=== PATIENT | male | born 1985 | race African-American/Black ===

== ENCOUNTER 2021-03-17 12:07 | Inpatient (IN) | payer MEDICAID ==
[~2021-03-17] VITALS: Ht 177.8 cm; Wt 99.3 kg
--- NOTE | 2021-03-17 12:55 | NUR ---
35 years old male alert, oriented x4 walking to er c/o abdominal pain, nausea vomiting x2 days, black stool no acute distress at present.
[2021-03-17] MEDS ORDERED: ONDANSETRON HCL/PF 4 MG/2 ML VIAL ONE ×2 (13:17→15:28)
[2021-03-17] MEDS ORDERED: FAMOTIDINE/PF INJ 20 MG/2 ML VIAL IV ONE ×2 (13:18→13:30)
[2021-03-17 13:23] LABS: BASOPHILS % (AUTO) 0.1 % (0.0-2.0); EOSINOPHILS % (AUTO) 1.1 % (0.0-6.0); HEMATOCRIT 41 % (39-51); HEMOGLOBIN 13.8 g/dL (13.5-17.5); LYMPHOCYTES # (AUTO) 0.6 /CMM (0.8-4.8); LYMPHOCYTES % (AUTO) 8.1 % (20.0-44.0); MEAN CORPUSCULAR HGB CONC 34 g/dl (31.0-36.0); MEAN CORPUSCULAR VOLUME 87 fL (80-96); MONOCYTES # (AUTO) 0.5 /CMM (0.1-1.30); MONOCYTES % (AUTO) 6.2 % (2.0-12.0); NEUTROPHILS # (AUTO) 6.7 /CMM (1.8-8.9); NEUTROPHILS % (AUTO) 84.5 % (43.0-81.0); PLATELET COUNT (AUTO) 209 /CMM (150-450); RED BLOOD CELL COUNT(AUTO) 4.73 MIL/uL (4.5-6.0)
[2021-03-17 13:28] LABS: CALCIUM, SERUM 9.1 mg/dL (8.5-10.1); CREATININE 1.3 mg/dL (0.6-1.3); POTASSIUM 3.4 mmol/L (3.5-5.1)
[2021-03-17] MEDS ORDERED: ONDANSETRON HCL/PF 4 MG/2 ML VIAL IVP ONE (13:30)
[2021-03-17] MEDS ORDERED: IV NS 0.9% 1,000 ML BAG IV ONE ×2 (13:30→15:00)
--- NOTE | 2021-03-17 13:30 | NUR ---
us tech at bedside
[2021-03-17 13:35] LABS: ALBUMIN 4.3 g/dL (3.4-5.0); BILIRUBIN,DIRECT 0.2 mg/dL (0.0-0.2); BILIRUBIN,TOTAL 0.5 mg/dL (0.2-1.0); TOTAL PROTEIN, SERUM 8.6 g/dL (6.4-8.2)
[2021-03-17] MEDS ORDERED: ONDANSETRON HCL/PF - ER 4 MG/2 ML VIAL IV ONE (15:00)
[2021-03-17] MEDS ORDERED: MORPHINE SULFATE INJ 2 MG/ML DISP.SYRIN IV ONE (15:00)
[2021-03-17] MEDS ORDERED: MORPHINE SULFATE INJ 4 MG/ML DISP.SYRIN ONE (15:28)
--- NOTE | 2021-03-17 19:00 | NUR ---
patient resting no acute changes [facility] pt updates on plan of care.
--- NOTE | 2021-03-17 19:05 | NUR ---
rec'd report from DAMIEN Pena for virgil
--- NOTE | 2021-03-17 19:15 | NUR ---
report endorsed to nurse Dwyer all questions answered.
--- NOTE | 2021-03-17 19:28 | NUR ---
PAGED [facility].
--- NOTE | 2021-03-17 19:48 | NUR ---
CALLED NURSING SUP FOR MS BED
[2021-03-17] MEDS ORDERED: MORPHINE SULFATE INJ 2 MG/ML DISP.SYRIN IV PRN (20:00)
[2021-03-17] MEDS ORDERED: MAG HYDROX/AL HYDROX/SIMETH 30 ML UDC PO PRN (20:00)
[2021-03-17] MEDS ORDERED: ACETAMINOPHEN 325 MG TABLET PO PRN (20:00)
[2021-03-17] MEDS ORDERED: IV NS 0.9% 1,000 ML IV SCH (20:00)
[2021-03-17] MEDS ORDERED: PHARMACY ADD 1 AMP MVI TO IVF DAILY ONE BAG XX PRN (20:00)
[2021-03-17] MEDS ORDERED: Z GUARD REMEDY 2 OZ OINT TP PRN (20:00)
[2021-03-17] MEDS ORDERED: LORAZEPAM INJ 2 MG/ML VIAL IV PRN (20:00)
[2021-03-17] MEDS ORDERED: ZOLPIDEM TARTRATE 5 MG TABLET PO PRN (20:00)
[2021-03-17] MEDS ORDERED: MAGNESIUM HYDROXIDE 30 ML UDC PO PRN (20:00)
--- NOTE | 2021-03-17 20:29 | NUR ---
gave report to DAMIEN Ayon for virgil
[2021-03-17] MEDS ORDERED: POTASSIUM CL. PREMIX PERIPHER. 50 ML IV SCH (20:30)
[2021-03-17 21:00] VITALS: BP 155/96
[2021-03-17] MEDS ORDERED: Folic acid 1 MG in IV D5W 50 ML IV SCH (21:00)
[2021-03-17] MEDS ORDERED: MVI ADULT 10ML VIAL = 1AMP 10 ML in IV NS 0.9% 1,000 ML IV ONE (22:00)
--- NOTE | 2021-03-17 22:00 | NUR ---
MS RN NOTES Patient arrived to [facility] at 2100 via gurney and EMT escort in stable condition. Patient is A&Ox4. VS: Temp 98.3, B/P 155/96, HR 67, O2 sat 100%, RR 19. Pain 9/10, PRN Morphine given as ordered. Pupils equal and reactive to light. No vision or hearing issues. Heart rate and rhythm regular. Lung sounds clear. Bowel sounds throughout hypoactive, abdominal distension noted, tenderness upon palpation to L and R upper quadrants. No tenderness to lower quadrants. No bladder distension. Moves extremities equally. No edema. Has history of alcohol abuse, asthma, and OA. Patient states the n/v he had been feeling in ER has subsided and now only the abdominal pain is an issue. Will continue to monitor.
[2021-03-17] MEDS ORDERED: Thiamine 100 MG/ML VIAL ONE (23:32)
--- NOTE | 2021-03-17 23:38 | NUR ---
RN NOTES IV folic acid not available MD aware, pharmacy will mix tomorrow. Per MD do not give PO d/t pancreatitis.
[2021-03-17] MEDS: Thiamine 100 MG in IV D5W 50 ML IV SCH (23:59)
[2021-03-18] MEDS: POTASSIUM CL. PREMIX PERIPHER. 50 ML IV SCH ×2 (00:37→01:51)
[2021-03-18] MEDS: MORPHINE SULFATE INJ 2 MG/ML DISP.SYRIN IV PRN ×5 (01:18→21:24)
[2021-03-18 06:48] LABS: BASOPHILS % (AUTO) 0.1 % (0.0-2.0); EOSINOPHILS % (AUTO) 0.1 % (0.0-6.0); HEMATOCRIT 40 % (39-51); HEMOGLOBIN 13.3 g/dL (13.5-17.5); LYMPHOCYTES # (AUTO) 0.4 /CMM (0.8-4.8); LYMPHOCYTES % (AUTO) 4.5 % (20.0-44.0); MEAN CORPUSCULAR HGB CONC 33 g/dl (31.0-36.0); MEAN CORPUSCULAR VOLUME 88 fL (80-96); MONOCYTES # (AUTO) 0.6 /CMM (0.1-1.30); MONOCYTES % (AUTO) 7.1 % (2.0-12.0); NEUTROPHILS # (AUTO) 7.7 /CMM (1.8-8.9); NEUTROPHILS % (AUTO) 88.2 % (43.0-81.0); PLATELET COUNT (AUTO) 174 /CMM (150-450); RED BLOOD CELL COUNT(AUTO) 4.57 MIL/uL (4.5-6.0); WHITE BLOOD COUNT (AUTO) 8.7 K/uL (4.3-11.0)
--- NOTE | 2021-03-18 06:55 | NUR ---
MS RN CLOSING NOTES Patient is A&Ox4. VSS. Continues to have 8-9/10 pain to upper abdomen relieved to about a 5/10 after PRN Morphine administration. Denies n/v at this time but reports no appetite and feeling bloated. abd still distended. Tolerated IV K+ well. Tolerated IV fluids well. Mo withdrawal symptoms at this time. will endorse.
[2021-03-18] MEDS: IV NS 0.9% 1,000 ML IV PRN ×3 (07:01→22:43)
--- NOTE | 2021-03-18 07:26 | NUR ---
MS/RN OPENING NOTES RECEIVED PATIENT ON BED AWAKE ALERT AND ORIENTED X4. PATIENT IS ON ROOM AIR SATURATING WILL. PATIENT IN NO APPARENT RESPIRATORY DISTRESS NOTED. COMPLAINED OF PAIN JUST RECENTLY GIVEN PAIN MEDICATIONS BY NIGHT RN. WILL CONTINUE TO MONITOR.
[2021-03-18 07:31] LABS: CALCIUM, SERUM 7.9 mg/dL (8.5-10.1); MAGNESIUM 1.9 mg/dL (1.8-2.4); PHOSPHORUS 2.7 mg/dL (2.5-4.9); POTASSIUM 3.6 mmol/L (3.5-5.1)
[2021-03-18 08:00] VITALS: BP 154/94
--- NOTE | 2021-03-18 11:36 | NUR ---
MS/RN NOTES PRAKASH PIZARRO JOCKEY VALET ORDER TO INCREASE THE RATE OF NS1L AT 150 ML/HR. NOTED AND CARRIED OUT.
[2021-03-18 16:00] VITALS: BP 155/94
--- NOTE | 2021-03-18 19:20 | NUR ---
MS/RN CLOSING NOTES PATIENT IS ON BED AWAKE ALERT AND ORIENTED X4. PATIENT IS ON ROOM AIR SATURATING WILL. PATIENT IN NO APPARENT RESPIRATORY DISTRESS NOTED. NO COMPLAINED OF PAIN NOTED AT THIS TIME. SEEN AND EXAMINED BY MD WITH ORDERS MADE AND CARRIED OUT . ALL DUE MEDICATIONS WAS GIVEN. IV ACCESS AT RIGHT HAND # 20G WITH IV FLUID OF NS/1L AT 150ML/HR ON AND INFUSING WELL. SAFETY PRECAUTIONS WAS IN PLACED. BED IN LOWEST POSITION AND LOCKED. SIDERAILS LOCKED X2. CALL LIGHT WITHIN REACH. WILL ENDORSED TO COAL TRAMMER FOR HASEEB.
[2021-03-18 20:00] VITALS: BP 153/95
--- NOTE | 2021-03-18 20:00 | NUR ---
MS RN OPENING NOTES Patient is awake, A&Ox4. States he feels abdominal pain that does not go away but lessens with PRN medication administration, and feels his muscles twitch from time to time. Denies any other withdrawal symptoms. Will follow pain management regimen and continue with IVF and vitamins as ordered.
[2021-03-18] MEDS: Folic acid 1 MG in IV D5W 50 ML IV SCH (20:51)
[2021-03-18] MEDS: Thiamine 100 MG in IV D5W 50 ML IV SCH (21:34)
[2021-03-18 23:17] VITALS: BP 153/95
[2021-03-19] MEDS: MORPHINE SULFATE INJ 2 MG/ML DISP.SYRIN IV PRN ×3 (03:15→19:54)
[2021-03-19] MEDS: IV NS 0.9% 1,000 ML IV PRN ×2 (05:34→13:49)
[2021-03-19 06:26] LABS: BASOPHILS % (AUTO) 0.1 % (0.0-2.0); EOSINOPHILS % (AUTO) 0.4 % (0.0-6.0); HEMATOCRIT 36 % (39-51); HEMOGLOBIN 12.1 g/dL (13.5-17.5); LYMPHOCYTES # (AUTO) 0.6 /CMM (0.8-4.8); MEAN CORPUSCULAR HGB CONC 33 g/dl (31.0-36.0); MEAN CORPUSCULAR VOLUME 88 fL (80-96); MONOCYTES # (AUTO) 0.8 /CMM (0.1-1.30); MONOCYTES % (AUTO) 8.2 % (2.0-12.0); NEUTROPHILS % (AUTO) 85.3 % (43.0-81.0); PLATELET COUNT (AUTO) 152 /CMM (150-450); RED BLOOD CELL COUNT(AUTO) 4.15 MIL/uL (4.5-6.0); WHITE BLOOD COUNT (AUTO) 9.3 K/uL (4.3-11.0)
--- NOTE | 2021-03-19 06:36 | NUR ---
MS RN CLOSING NOTES Patient is A&Ox4. VSS. Reports severe pain x2, relieved with PRN Morphine, no other complaints at this time. Able to make needs known. IV patent and infusing NS at 150cc/hr.
--- NOTE | 2021-03-19 07:20 | NUR ---
MS/RN OPENING NOTES RECEIVED PATIENT ON BED AWAKE ALERT AND ORIENTED X4. PATIENT IS ON ROOM AIR SATURATING WILL. PATIENT IN NO APPARENT RESPIRATORY DISTRESS NOTED. NO COMPLAINED OF PAIN AT THIS TIME. WILL CONTINUE TO MONITOR.
[2021-03-19 08:41] VITALS: BP_SYST 123; BP_SYST 144; BP_DIAS 64; BP_DIAS 78
[2021-03-19 09:42] LABS: CALCIUM, SERUM 7.3 mg/dL (8.5-10.1); CREATININE 1.1 mg/dL (0.6-1.3); MAGNESIUM 1.8 mg/dL (1.8-2.4); PHOSPHORUS 1.8 mg/dL (2.5-4.9); POTASSIUM 3.5 mmol/L (3.5-5.1)
[2021-03-19] MEDS ORDERED: POTASSIUM PHOSPHATE MM 5 MMOL in IV NS 0.9% 100 ML IV SCH (12:30)
[2021-03-19] MEDS ORDERED: Sodium Phosphate 15 MMOL in IV NS 0.9% 245 ML IV SCH (13:00)
[2021-03-19 16:21] VITALS: BP 144/86
--- NOTE | 2021-03-19 19:30 | NUR ---
MS RN OPENING NOTES Patient is A&Ox4. States he feels upper abdominal pain, will address pain with PRN pain medication. No other issues at this time. Reports feeling happy that his lipase is trending down. No signs of withdrawal at this time.
--- NOTE | 2021-03-19 19:41 | NUR ---
MS/RN CLOSING NOTES PATIENT IS ON BED AWAKE ALERT AND ORIENTED X4. PATIENT IS ON ROOM AIR SATURATING WILL. PATIENT IN NO APPARENT RESPIRATORY DISTRESS NOTED. NO COMPLAINED OF PAIN NOTED AT THIS TIME. SEEN AND EXAMINED BY MD WITH ORDERS MADE AND CARRIED OUT . ALL DUE MEDICATIONS WAS GIVEN. IV ACCESS AT RIGHT HAND # 20G WITH IV FLUID OF NS/1L AT 150ML/HR ON AND INFUSING WELL. SAFETY PRECAUTIONS WAS IN PLACED. BED IN LOWEST POSITION AND LOCKED. SIDERAILS LOCKED X2. CALL LIGHT WITHIN REACH. WILL ENDORSED TO IMPROVEMENT DIRECTOR FOR HASEEB.
[2021-03-19 20:00] VITALS: BP 150/95
[2021-03-19] MEDS: Folic acid 1 MG in IV D5W 50 ML IV SCH (20:28)
[2021-03-19] MEDS: Thiamine 100 MG in IV D5W 50 ML IV SCH (21:32)
[2021-03-20] MEDS: MORPHINE SULFATE INJ 2 MG/ML DISP.SYRIN IV PRN ×5 (04:29→21:39)
[2021-03-20] MEDS: IV NS 0.9% 1,000 ML IV PRN (04:33)
[2021-03-20 06:36] LABS: BASOPHILS % (AUTO) 0.1 % (0.0-2.0); EOSINOPHILS % (AUTO) 0.9 % (0.0-6.0); HEMATOCRIT 35 % (39-51); HEMOGLOBIN 11.4 g/dL (13.5-17.5); LYMPHOCYTES # (AUTO) 0.7 /CMM (0.8-4.8); MEAN CORPUSCULAR HGB CONC 33 g/dl (31.0-36.0); MEAN CORPUSCULAR VOLUME 88 fL (80-96); MONOCYTES # (AUTO) 0.9 /CMM (0.1-1.30); MONOCYTES % (AUTO) 9.4 % (2.0-12.0); NEUTROPHILS # (AUTO) 7.7 /CMM (1.8-8.9); NEUTROPHILS % (AUTO) 82.6 % (43.0-81.0); PLATELET COUNT (AUTO) 160 /CMM (150-450); RED BLOOD CELL COUNT(AUTO) 3.92 MIL/uL (4.5-6.0); WHITE BLOOD COUNT (AUTO) 9.4 K/uL (4.3-11.0)
[2021-03-20 07:03] LABS: CALCIUM, SERUM 7.3 mg/dL (8.5-10.1); MAGNESIUM 2.2 mg/dL (1.8-2.4); PHOSPHORUS 1.8 mg/dL (2.5-4.9); POTASSIUM 3.3 mmol/L (3.5-5.1)
--- NOTE | 2021-03-20 07:25 | NUR ---
CLOSING NOTE A&Ox4. VSS. Only complaint is abdominal pain relieved by PRN Morphine. No signs of distress, no signs of withdrawal.Feeling much better.
[2021-03-20 08:00] VITALS: BP 154/83
[2021-03-20] MEDS: POTASSIUM PHOSPHATE MM 5 MMOL in IV NS 0.9% 100 ML IV SCH ×2 (09:31→11:40)
[2021-03-20] MEDS: ONDANSETRON HCL/PF 4 MG/2 ML VIAL IVP PRN (13:28)
[2021-03-20 16:00] VITALS: BP 99/62
--- NOTE | 2021-03-20 19:30 | NUR ---
MS RN OPENING PATIENT IN BED WATCHING TELEVISION. A/OX4. NO S/S OF DISTRESS. NO C/O PAIN AT THIS TIME. IV NS RUNNING @150 ML/HR. SAFETY IN PLACE: BED IN LOWEST, LOCKED POSITION; CALL LIGHT WITHIN REACH, NPO SIGN IN PLACE. WILL CONTINUE TO MONITOR.
[2021-03-20 20:00] VITALS: BP 143/88
--- NOTE | 2021-03-20 20:14 | NUR ---
MS RN NOTES CALLED PHARMACY FOR THE FOLIC ACID. NOT IN THE FRIDGE. PER PHARMACY, THEY ARE STILL MAKING IT.
[2021-03-20] MEDS: Folic acid 1 MG in IV D5W 50 ML IV SCH (20:24)
[2021-03-20] MEDS: Thiamine 100 MG in IV D5W 50 ML IV SCH (21:25)
--- NOTE | 2021-03-20 21:40 | NUR ---
MS RN NOTES PATIENT C/O 8/10 PAIN IN THE ABDOMEN AND ASKED FOR PAIN MEDICATION. GIVEN MORPHINE 1.5 ML PRN. WILL REASSESS AND CONTINUE TO MONITOR.
[2021-03-21] MEDS: IV NS 0.9% 1,000 ML IV PRN ×2 (02:06→14:43)
[2021-03-21 06:04] LABS: BASOPHILS % (AUTO) 0.1 % (0.0-2.0); EOSINOPHILS % (AUTO) 1.1 % (0.0-6.0); HEMATOCRIT 34 % (39-51); HEMOGLOBIN 11.4 g/dL (13.5-17.5); LYMPHOCYTES # (AUTO) 0.7 /CMM (0.8-4.8); LYMPHOCYTES % (AUTO) 6.7 % (20.0-44.0); MEAN CORPUSCULAR HGB CONC 34 g/dl (31.0-36.0); MEAN CORPUSCULAR VOLUME 88 fL (80-96); MONOCYTES # (AUTO) 1.2 /CMM (0.1-1.30); MONOCYTES % (AUTO) 11.7 % (2.0-12.0); NEUTROPHILS # (AUTO) 8.3 /CMM (1.8-8.9); NEUTROPHILS % (AUTO) 80.4 % (43.0-81.0); PLATELET COUNT (AUTO) 178 /CMM (150-450); RED BLOOD CELL COUNT(AUTO) 3.87 MIL/uL (4.5-6.0); WHITE BLOOD COUNT (AUTO) 10.3 K/uL (4.3-11.0)
--- NOTE | 2021-03-21 06:50 | NUR ---
MS RN CLOSING NOTE PATIENT IN BED WATCHING TELEVISION. A/OX4. NO S/S OF APPARENT DISTRESS. PAIN MANAGED WITH MEDICATION. NS RUNNING @150ML/HR. NPO SIGN IN PLACE. NO S/S OF ETOH WITHDRAWAL. ALL NEEDS ATTENDED. SAFETY KEPT IN PLACE THE WHOLE SHIIFT: BED IN LOWEST, LOCKED POSITION; CALL LIGHT WITHIN REACH. NO SIGNIFICANT CHANGE SINCE LAST SHIFT. WILL ENDORSE CARE TO AM SHIFT RN.
[2021-03-21 06:51] LABS: CALCIUM, SERUM 7.4 mg/dL (8.5-10.1); MAGNESIUM 2.3 mg/dL (1.8-2.4); PHOSPHORUS 1.9 mg/dL (2.5-4.9); POTASSIUM 3.4 mmol/L (3.5-5.1)
[2021-03-21 08:00] VITALS: BP 147/90
[2021-03-21] MEDS: MORPHINE SULFATE INJ 2 MG/ML DISP.SYRIN IV PRN ×2 (08:13→12:10)
[2021-03-21] MEDS ORDERED: K PHOS NEUTRAL 250 MG TABLET PO ONE ×2 (09:00→15:00)
[2021-03-21] MEDS ORDERED: PANT40TA2 PO (09:54)
[2021-03-21] MEDS ORDERED: THIA100T88 PO (09:54)
[2021-03-21] MEDS ORDERED: THIAMINE HCL 100 MG TABLET PO SCH (11:00)
[2021-03-21] MEDS ORDERED: FOLIC ACID 1 MG TABLET PO SCH (11:00)
[2021-03-21] MEDS: ONDANSETRON HCL/PF 4 MG/2 ML VIAL IVP PRN (11:05)
[2021-03-21] MEDS ORDERED: POTASSIUM CHLORIDE 20 MEQ TAB.PRT.SR PO ONE (11:30)
[2021-03-21 16:00] VITALS: BP 156/95
--- NOTE | 2021-03-21 16:02 | NUR ---
SS Consult: SS Consult completed for ETOH abuse. The pt. is a 5 year old black male. KENDRA met with pt. bedside. The pt. is A&OX4. KENDRA discussed ETOH abuse with pt. . Pt. states he began drinking in 2014 due to inability to sleep and family problems. Pt. states since COVID began he started drinking daily and is living off unemployment. Pt. states he will go [facility] [facility] [id number]] WHEN DISCHARGED. KENDRA provided pt. with addiction resources and pt. was receptive. SW will refer pt. to TTC. Pt. stated he will also call [facility] to enroll in out patient or inpatient Tx. Pt. denies si/hi and denies hallucinations. ADDICTION RESOURCES For Drugs and Alcohol [facility] Substance Abuse Helpline(SAS)-[facility] Outpatient treatment, residential treatment, recovery support for youth and adults [facility] www.[employer] [facility] Teen programs for drug/alcohol education and support [facility]. Program for adults, sliding scale provides support and education [employer] www.Har[employer].org [place]; Outpatient/residential treatment programs; transition to sober living [facility] www.cri-help.org [place]; Outpatient and residential treatment programs; transition to sober living [facility] Jaime Oh[place]; Outpatient education and supportive programs for teens and adults [facility] www.oasiswomensrecovery.org [place]; Residential treatment and work program for females only [facility] www.[facility] hospitalMobSt[facility].org [place]: Outpatient/residential treatment program for teens and young adults [facility] www.[facility].org [place] Detox, inpatient, outpatient for adults and youth [facility], [facility]. [place]; Outpatient programs and referrals to community residential programs. Alcoholics Anonymous -SFV information and meeting and schedules www.aa-intergroup.org Samantha https://al-anon.org/ [place] support groups for family of alcoholics. Marijuana Anonymous www.madistrict6.org -sfv listing of meetings Narcotics Anonymous www.na.org SOBER LIVING RESOURCES [facility] www.soberhousing.net A non-profit agency that provides resources to recovery and sober living homes throughout [place], [facility] Sober Living Homes: A Work in Progress, Juan [place] [facility], [place] [facility]omens Sober Living Homes: [facility] [phone] [place], [place] [facility] Coed Sober Living Homes: [facility] Counseling--Outpatient [facility] [place] [address] [facility] [place] [address] (Specializes in in-depth psychotherapy for emotional distress: anxiety, depression, interpersonal conflicts, life transitions, childhood abuse) [facility] [address] [place] [address] (Assist with solving problem marital difficulties, separation & divorce, aging parents, & grief, chronic & terminal illness) [facility] [address] [place] [address] (Deal with loss & grief, anxiety, marital difficulties) Homebound/Mental Health Services [address] [facility] [address] [place], [place] [address] (Provide in-home mental services to people who are incapable of leaving their homes) Organization for Needs of the Elderly Senior Service/Resource Center [address] [place] [address] [facility] [address] [place], [place] [id number] PSYCHIATRIC OUTPATIENT SERVICES [facility] Partial Hospitalization and Intensive Outpatient Program (Managed Care and [place] Only)[address] [facility] [address] [facility] [phone] [facility] Partial Hospitalization and Outpatient [address] [place], [place] [phone] [facility] Partial Hospitalization and Outpatient [address] [place], [place] [phone] [facility] [id number] [facility] [address] [place], [place] [phone] [facility] Partial Hospitalization and Outpatient [id number] EmeliGreater Baltimore Medical CenterclayKANSAS CITY, [phone] Crisis and Hotline Telephone Numbers 24-Hour service unless stated [place] Crisis Hotlines: [facility] Mental Health/Crisis Line........252.163.4076 Suicide Prevention Center (24 Hours).......158.279.9219 Suicide Prevention Crisis Center.......345.713.5195 (24 Hours) Assaults Against Women Hotline.........980.421.9431 (24 Hours -- [facility]) Women and Children Crisis Assisted...........264.120.8945 (24 Hours) Child Abuse Hotline............947.685.7558 [facility] of Childrens Services [facility] Treatment Center (24 Hours)..........510.973.3970 Alcoholics Anonymous (24 Hours)..........211.718.1043 Cocaine Anonymous (24 Hours)............[phone] Narcotics Anonymous (24 Hours)..........279.111.6807 CHERIE PEDRAZA [facility] [address], [place] [address] Mental Health Services Ping Serna Hallie [address] [place] [address] Services: Outpatient therapy for children, teens, young adults, adults, older adults, and families; Psychiatric services, medication support Crisis and Hotline Telephone Numbers 24-Hour service unless stated [place] Crisis Hotlines: Bathrooms.com. Mental Health/Crisis Line........408.474.1052 Suicide Prevention Center (24 Hours).......[phone] Suicide Prevention Crisis Center.......375.190.4622 (24 Hours) Alcoholics Anonymous (24 Hours)..........763.246.2518 [place] Crisis Hotlines: Alcohol and Drug Helpline - Provides referrals to local facilities where adolescents and adults can seek help. Brief intervention. [facility] Helpline National [place] [employer]ally Ill 3-359-733-NATANAEL National Youth Crisis Hotline [place] [facility]. Provides free information on specific disorders, referral directory to mental health providers, national directory of local mental health associations (M-F, 9-5 EST) National [place] of Mental Health Information Line: Provide sinformation and literature on mental illness by disorder-for professionals and general public.
--- NOTE | 2021-03-21 18:08 | NUR ---
Pt discharged and insisted on ambulating accompanied by RN to [facility]. Pt states he [place] from [place] hospital and preferred to walk home. L FA IV removed at 1730, discharge paperwork reviewed and signed with pt, copies given to pt in discharge folder. Pt discharged from hospital at 1755, stable gait, VSS, no N/V. Pt instructed to return to ER if s/s of pancreatitis return.
== END 2021-03-21 18:00 | disposition home or self-care (01) | DRG 282 ==
LOC: ER 12:13 → MED 20:33
PROVIDERS: ADMIT Family Medicine; ATTEND Nurse Practitioner Acute Care
DX: K85.20 Alcohol induced acute pancreatitis without necrosis or infection (principal); E44.1 Mild protein-calorie malnutrition; E83.39 Other disorders of phosphorus metabolism; E66.9 Obesity, unspecified; Z68.31 Body mass index [BMI] 31.0-31.9, adult; E87.6 Hypokalemia; F10.229 Alcohol dependence with intoxication, unspecified; Y90.0 Blood alcohol level of less than 20 mg/100 ml; J45.909 Unspecified asthma, uncomplicated; Z91.041 Radiographic dye allergy status; Z91.013 Allergy to seafood; K70.0 Alcoholic fatty liver; Z20.822 Contact with and (suspected) exposure to COVID-19
CPT/HCPCS: 36415; 76705-TC; 80048-TC; 80061-TC; 80076-TC; 83690-TC; 83735-TC; 84100-TC; 85025-TC; 87081-TC; A9563; C9803; G0378; G0480; J2270; J2405; J3411; J3480; J3490; J7030; J7050; J7060

== ENCOUNTER 2022-05-16 10:31 | Emergency (ER) | payer MEDICAID ==
[~2022-05-16] VITALS: Ht 177.8 cm; Wt 81.6 kg
[~2022-05-16 10:31] MED LIST: PANT40TA2 PO; THIA100T88 PO
[2022-05-16] MEDS ORDERED: BACI/NEOM/POLY B OINT PKT 1 UDPKT PACKET ONE (11:21)
[2022-05-16] MEDS ORDERED: TDAP [DIPH/PERTUSSIS/TET] 0.5 ML VIAL IM ONE ×2 (11:24→11:30)
--- NOTE | 2022-05-16 11:51 | NUR ---
BIBS , lacerationo noted on left Below Knee , gave two stitches, wound cleansed and treated
[2022-05-16 11:54] VITALS: BP 125/96
--- NOTE | 2022-05-16 11:56 | NUR ---
stable, ambulated out of hospital on own, stated family giving him a ride
== END 2022-05-16 10:51 | disposition home or self-care (01) ==
LOC: ER 10:40
DX: S81.811A Laceration without foreign body, right lower leg, initial encounter (principal); J45.909 Unspecified asthma, uncomplicated; Z60.2 Problems related to living alone; Z79.899 Other long term (current) drug therapy; Z91.013 Allergy to seafood; W25.XXXA Contact with sharp glass, initial encounter; Y93.89 Activity, other specified; Y92.89 Other specified places as the place of occurrence of the external cause; Y99.8 Other external cause status
CPT/HCPCS: 90715

== ENCOUNTER 2022-05-26 14:21 | Emergency (ER) | payer MEDICAID ==
[~2022-05-26] VITALS: Ht 177.8 cm; Wt 81.6 kg
[2022-05-26 16:13] VITALS: BP 128/84
--- NOTE | 2022-05-26 16:33 | NUR ---
Patient discharged to home in stable condition. Written and verbal after care instructions given. Patient verbalizes understanding of instruction.
== END 2022-05-26 16:33 | disposition home or self-care (01) ==
LOC: ER 14:24
DX: S81.811D Laceration without foreign body, right lower leg, subsequent encounter (principal); J45.909 Unspecified asthma, uncomplicated; Z88.8 Allergy status to other drugs, medicaments and biological substances; Z91.013 Allergy to seafood; Z60.2 Problems related to living alone; Z79.899 Other long term (current) drug therapy; X58.XXXD Exposure to other specified factors, subsequent encounter

== ENCOUNTER 2024-01-24 14:06 | Emergency (ER) | payer MEDICAID, OTHER ==
[~2024-01-24] VITALS: Ht 177.8 cm; Wt 81.6 kg
[2024-01-24 14:41] VITALS: BP 119/92; TEMP 98.6; O2SAT 99
[2024-01-24] MEDS ORDERED: TRIA80OI TP (15:02)
[2024-01-24] MEDS ORDERED: methylPREDNISolone SOD SUCC 125 MG/2ML VIAL ONE (15:10)
[2024-01-24] MEDS: methylPREDNISolone SOD SUCC 125 MG/2ML VIAL IM ONE (15:11)
== END 2024-01-24 15:30 | disposition home or self-care (01) ==
LOC: ER 14:21
DX: L30.9 Dermatitis, unspecified (principal); I10 Essential (primary) hypertension; J45.909 Unspecified asthma, uncomplicated; Z88.8 Allergy status to other drugs, medicaments and biological substances; Z91.013 Allergy to seafood; Z60.2 Problems related to living alone
CPT/HCPCS: 99283; 96372; J2930